=== PATIENT | female | born 2000 ===

== ENCOUNTER 2023-04-16 04:13 | Emergency (ER) | payer BC ==
[2023-04-16] MEDS: Ondansetron 4 MG/2 ML SDV IVPUSH ONE (04:46)
[2023-04-16 04:48] LABS: BASOPHILS PERCENT AUTO 0.1 % (0.0-1.0); EOSINOPHILS PERCENT AUTO 0.7 % (1.0-3.0); HEMATOCRIT 37.4 % (37.0-47.0); HEMOGLOBIN 12.9 g/dL (12.0-16.0); LYMPHOCYTES PERCENT AUTO 23.1 % (20.5-50.1); MEAN CORPUSCULAR HEMOGLOBIN 28.5 pg (27.0-34.0); MEAN CORPUSCULAR HGB CONC 34.5 g/dL (33.0-35.0); MEAN CORPUSCULAR VOLUME 82.7 fL (80-100); MONOCYTES PERCENT AUTO 7.8 % (2-8); NEUTROPHILS PERCENT AUTO 68.3 % (42.2-75.2); PLATELET COUNT,PLT 322 10^3/uL (150-450); RED BLOOD CELL COUNT 4.52 10^6/uL (4.2-5.4); WHITE BLOOD CELL COUNT,WBC 16.9 10^3/uL (5.0-10.0)
[2023-04-16] MEDS: Ketorolac 30 MG/ML SDV IVPUSH ONE ×2 (04:50→05:24)
[2023-04-16] MEDS: fentaNYL 100 MCG/2 ML SDV IVPUSH ONE (04:51)
[2023-04-16 05:03] LABS: ANION GAP 12.6 mEq/L (7-13); BLOOD UREA NITROGEN,BUN 20 mg/dL (7-18); C-REACTIVE PROTEIN 1.2 mg/dL (0.0-0.9); CALCIUM 8.8 mg/dL (8.5-10.1); CARBON DIOXIDE,CO2 27 mmol/L (21-32); CHLORIDE,CL 103 mmol/L (98-107); CREATININE 0.86 mg/dL (0.55-1.02); ESTIMATED GFR 98 mL/min (>=60); GLUCOSE RANDOM 94 mg/dL (70-99); POTASSIUM,K 3.6 mmol/L (3.5-5.1); SODIUM,NA 139 mmol/L (136-145)
[2023-04-16 05:11] LABS: LACTIC ACID 0.7 mmol/L (0.4-2.0)
[2023-04-16] MEDS: LORazepam 2 MG/ML SDV IVPUSH ONE (05:19)
[2023-04-16] MEDS: Iopamidol 612 MG/ML 100 ML Bottle IVPUSH ONE (05:42)
[2023-04-16] MEDS: Cephalexin 500 MG Cap PO ONE (06:30)
[2023-04-16 06:42] VITALS: BP 108/63; PULSE 93
== END 2023-04-16 06:37 | disposition home or self-care (01) ==
LOC: DL.ED 04:13
DX: T81.40XA Infection following a procedure, unspecified, initial encounter (principal); M79.672 Pain in left foot; Z98.890 Other specified postprocedural states; Z88.5 Allergy status to narcotic agent; Z88.8 Allergy status to other drugs, medicaments and biological substances
CPT/HCPCS: 36415; 73701-LT; 80048; 83605; 85025; 86140; 96374; 96375; 99284; 99284-25; A9270-GY; J1885; J2060; J2405; J3010; Q9967